=== PATIENT | female | born 1960 | race Caucasian/White ===

== ENCOUNTER 2023-06-20 20:45 | Outpatient (REF) | payer SELFPAY ==
[2023-06-20 21:31] LABS: Bacteria Negative HPF (Negative); C & S Indicated? C&S Done As Ordered; Crystals Negative HPF (Negative); Epithelial Cells Few HPF (Negative); Mucus Trace (Negative); RBC >50 HPF (0-2); WBC 0-2 HPF (0-5)
== END 2023-06-20 20:46 | disposition home or self-care (01) ==
LOC: LBN 20:45
PROVIDERS: Visit Provider Physician Assistant Medical
DX: R35.0 Frequency of micturition (principal)
CPT/HCPCS: 81015; 87086

== ENCOUNTER 2024-09-02 18:49 | Observation (INO) | payer SELFPAY ==
[2024-09-02 18:54] VITALS: BP 161/80; PULSE 91; RESP 16; TEMP 36.4; O2SAT 97
[2024-09-02 19:37] LABS: Abs Immature Grans 0.08 10^3/uL (0.0-0.06); Absolute Basophil Count 0.03 10^3/uL (0.0-0.2); Absolute Eosinophil Count 0.02 10^3/uL (0.0-0.7); Absolute Lymphocyte Count 0.85 10^3/uL (1.2-3.4); Absolute Monocyte Count 0.81 10^3/uL (0.1-0.8); Absolute Neutrophil Count 14.48 10^3/uL (1.2-6.7); Basophils % 0.2 %; Eosinophils % 0.1 %; HCT 45.5 % (36.0-46.0); HGB 15.3 g/dL (11.2-15.7); Immature Grans % 0.5 %; Lymphocytes % 5.2 %; MCH 30.9 pg (27.0-33.0); MCHC 33.6 % (32.0-36.0); MCV 92 fL (80-95); MPV 11.2 fL (8.0-11.0); Platelet Count 194 10^3/uL (130-400); RBC 4.95 10^6/uL (3.93-5.22); RDW 13.4 % (11.7-14.6); RDW-SD 45.3 fL; WBC 16.27 10^3/uL (4.4-10.8)
[2024-09-02 19:40] LABS: Bilirubin Small (Negative); Blood Large (Negative); Clarity Sl Cloudy (Clear); Glucose Negative (Negative); Ketones Trace mg/dL (Negative); Leukocyte Esterase Negative (Negative); Nitrite Negative (Negative); Specific Gravity >= 1.030 (1.005-1.025); Urobilinogen 0.2 mg/dL (Up to 0.2); pH 5.5 (5-8)
[2024-09-02 19:52] LABS: Bacteria Few HPF (Negative); Crystals Few Amorphous HPF (Negative); Epithelial Cells Many HPF (Negative); RBC 20-50 HPF (0-2); WBC 0-2 HPF (0-5)
[2024-09-02 19:53] LABS: C & S Indicated? No; Mucus Trace (Negative)
--- NOTE | 2024-09-02 19:58 | W.ED.GENAD ---
Discharge Plan Disposition Patient Disposition: Admit to [facility] Condition: Stable Discharge Details Chief Complaint: Abd Prob Clinical Impression: Acute cholecystitis Primary Care Provider: None,None ED Provider: Juan Mosley Home Meds and New Rx's Prescriptions: No Action No Known Home Meds HPI General Date/Time Provider Initiated Documentation: 09/02/24 19:28. HPI Narrative: 63-year-old female presents with upper abdominal discomfort bilateral epigastric as well as left flank associated with some urinary frequency and nausea, no diarrhea, is able to pass flatus, history of 2 prior sections Related Data Home Medications ?Medication ?Instructions ?Recorded ?Confirmed Unknown [No Known Home Meds] 09/02/24 09/02/24 Allergies Allergy/AdvReac Type Severity Reaction Status Date / Time No Known Allergies Allergy Unverified 09/02/24 19:03 General Stated Complaint: Abd Prob MOLINA: 3 Exam Narrative Exam Narrative: Alert interactive Moist mucous membranes tolerating secretions Normal voice speaking full sentences Lungs clear bilaterally no wheeze rales or rhonchi Normal heart sounds no murmurs rubs or gallops Abdomen soft mildly distended subjective discomfort epigastrium without guarding or rebound Alert oriented moves all extremities without deficit No peripheral edema No rashes appreciated Calm cooperative Course Vital Signs Vital signs: Vital Signs Temperature 36.4 C L 09/02/24 18:54 Pulse 91 H 09/02/24 18:54 Respiratory Rate 16 09/02/24 18:54 Blood Pressure 161/80 H 09/02/24 18:54 Pulse Oximetry 97 09/02/24 18:54 Temperature 36.4 C L 09/02/24 18:54 Temperature Source Temporal Artery Scan 09/02/24 18:54 Pulse 91 H 09/02/24 18:54 Respiratory Rate 16 09/02/24 18:54 Respiratory Effort Normal 09/02/24 19:03 Blood Pressure 161/80 H 09/02/24 18:54 Blood Pressure Position Sitting 09/02/24 18:54 Pulse Oximetry 97 09/02/24 18:54 Oxygen Delivery Method Room Air 09/02/24 18:54 Oxygen Flow Rate 0 09/02/24 18:54 Pain Level 9 09/02/24 18:54 Lab/Test Results Lab/Test Results: Laboratory Tests Range/Units 09/02/24 09/02/24 19:02 19:30 WBC (4.4-10.8) 10^3/uL 16.27 H RBC (3.93-5.22) 10^6/uL 4.95 Hgb (11.2-15.7) g/dL 15.3 Hct (36.0-46.0) % 45.5 MCV (80-95) fL 92 MCH (27.0-33.0) pg 30.9 MCHC (32.0-36.0) % 33.6 RDW (11.7-14.6) % 13.4 Plt Count (130-400) 10^3/uL 194 MPV (8.0-11.0) fL 11.2 H Immature Gran % % 0.5 Neutrophils % % 89.0 Lymphocytes % % 5.2 Monocytes % % 5.0 Eosinophils % % 0.1 Basophils % % 0.2 Nucleated RBC % (0.0-0.3) % 0.0 Absolute Neutrophils (1.2-6.7) 10^3/uL 14.48 H Absolute Lymphocytes (1.2-3.4) 10^3/uL 0.85 L Absolute Monocytes (0.1-0.8) 10^3/uL 0.81 H Absolute Eosinophils (0.0-0.7) 10^3/uL 0.02 Absolute Basophils (0.0-0.2) 10^3/uL 0.03 Urine Color (Yellow) Dark Yellow Urine Clarity (Clear) Sl Cloudy Urine pH (5-8) 5.5 Ur Specific [place] (1.005-1.025) >= 1.030 H Urine Protein (Neg-Trace) mg/dL 100 H Urine Ketones (Negative) mg/dL Trace H Urine Blood (Negative) Large H Urine Nitrite (Negative) Negative Urine Bilirubin (Negative) Small H Urine Urobilinogen (Up to 0.2) mg/dL 0.2 Ur Leukocyte Esterase (Negative) Negative Urine RBC (0-2) HPF 20-50 H Urine WBC (0-5) HPF 0-2 Ur Epithelial Cells (Negative) HPF Many Urine Crystals (Negative) HPF Few Amorphous Urine Bacteria (Negative) HPF Few Urine Mucus (Negative) Trace Ur Culture Indicated? No Urine Glucose (Negative) mg/dL Negative Medical Decision Making 63-year-old female presents with epigastric and left upper quadrant/flank discomfort associate with nausea and vomiting, no lower GI symptoms, patient does have some urinary frequency, hypertensive on arrival likely due to discomfort, mildly distended abdomen without guarding or rebounding, some component of flank pain and urinary frequency consider kidney stone versus gastritis versus cholecystitis versus biliary colic versus enteritis versus less likely appendicitis most also consider pyelonephritis versus viral illness versus electrolyte derangement. Screening labs imaging close reassessment 21: 28 evidence of cholecystitis. Will initiate Zosyn. Will contact general surgery for admission. Patient last ate over 24 hours ago. 21: 42 patient has been admitted to general surgery Dr. Chiang. Patient currently resting comfortably antibiotics running, patient has been n.p.o. since yesterday. Quality:SDOH Health Related Social Needs: No Data to Display PFSH All Active Problems (Updated 09/02/24 @ 21:43 by Juan Mosley MD) Acute cholecystitis (Acute) Social History Smoking risk assessment performed?: No
[2024-09-02 19:59] LABS: ALT 22 U/L (14-59); AST 12 U/L (15-37); Albumin 3.9 g/dL (3.4-5.0); Alkaline Phosphatase 82 U/L (46-116); Anion Gap 10.3 mmol/L (3-11); BUN 12 mg/dL (7-18); Bilirubin, Total 1.21 mg/dL (0.2-1.0); CO2 27.7 mmol/L (21.0-32.0); CREATININE 0.9 mg/dL (0.55-1.02); Calcium 9.7 mg/dL (8.5-10.1); Chloride 104 mmol/L (98-107); Estimated GFR 70.95 (mL/min/1.73m2); Glucose 132 mg/dL (74-106); Lipase 15 U/L (16-77); NT-proBNP 2521 pg/mL (<300); Potassium 3.7 mmol/L (3.5-5.1); Sodium 142 mmol/L (136-145); Total Protein 7.7 g/dL (6.4-8.2); Troponin I 42 ng/L (<or=51)
--- NOTE | 2024-09-02 20:00 | DI.CT_ITS ---
Exam(s) CT CHEST PE ABD PELVIS W EXAM: CT CHEST PE ABD PELVIS W CLINICAL HISTORY: upper abd pain, sob, elevated BNP, flank pain, L. TECHNIQUE: Imaging Protocol: Axial CT angiography was performed with multi-slice acquisition and mu lti-planar and/or 3D reconstructions. CONTRAST MATERIAL: Intravenous: Omnipaque 350contrast volume:100 mL COMPARISON: No exams were available for comparison FINDINGS: The examination is limited due to patient motion artifact. CHEST: Tracheobronchial tree: Patent where visualized. There is mild bronchial wall thickening which can be seen with reactive airways disease or bronchitis. Please correlate clinically. Pulmonary parenchyma: No consolidation or dominant measurable mass. No architectural distortion. Ther e is a 2 mm nodule in the posterior aspect of the right lung apex (series 7, image 19). Atelectatic changes are seen in the lungs. Pulmonary Arteries: No evidence of filling defect to suggest pulmonary emboli. Mediastinum and Ngozi: No dominant adenopathy or fluid collection. The esophagus is unremarkable. Visualized thyroid gland: Unremarkable. Pleura: No effusion or pneumothorax. Heart: Mild cardiomegaly. Coronary artery calcification is present. There is no evidence of right h eart strain. No pericardial effusion. Aorta: Thoracic aorta non-dilated. Atherosclerotic calcification is present. Due to the timing of th e bolus, there is suboptimal opacification of the thoracic aorta. Bones: Within normal limits for the patient's age. Soft tissues: Unremarkable. ABDOMEN: Liver: Normal density. No measurable mass. Portal, Superior Mesenteric, and Splenic Veins: Unremarkable. Gallbladder and Biliary Tract: The gallbladder is distended measuring 6 cm in diameter. There is a d iffusely thickened wall. There is a small amount of fluid seen around the gallbladder. There is a 7 mm soft tissue nodule along the wall of the gallbladder anteriorly (series 30, image 57). There is also a round area of decreased density in the dependent portion of the gallbladder which may represen t a stone. It measures 1.6 cm. (Series 30, image 51). There is no biliary ductal dilatation. Pancreas: Normal density, no abnormal calcifications or inflammatory process. Spleen: Normal. Adrenals: No masses seen. Kidneys: Normal size, contour and axis. No radiodense stones or obstructive uropathy. There are few t iny hypodensities in the kidneys. They are too small for further characterization. No follow-up is recommended. Abdominal Aorta: The infrarenal abdominal aorta measures 3 cm in diameter. There is no evidence of d issection. Atherosclerotic calcification is present. Bowel: No obstruction or bowel wall thickening. No evidence of appendicitis. Peritoneal Cavity: No ascites, collection or mesenteric inflammatory response. No free air. Lymph Nodes: Within normal limits. Bones: Within normal limits for the patient's age. There is a hemangioma in the L4 vertebral body. Soft Tissues: Unremarkable. PELVIS: Bladder: Symmetric distention, no gross wall thickening. Reproductive Organs: There is a 9.1 x 9.2 cm cyst in the pelvis (series 30, image 123). It is centra lly located but may arise from the right ovary. There is asymmetric thickening of the wall on the le ft side of the cyst. Lymph Nodes: Within normal limits. Bones: Within normal limits. IMPRESSION: 1. No evidence pulmonary embolism, thoracic aortic dissection or aneurysm. 2. No acute pulmonary process. 3. Distended gallbladder with what appears to be a noncalcified stone. Fluid is seen around the gall bladder. The findings are concerning for acute cholecystitis. Gallbladder ultrasound is recommended for further evaluation. No biliary ductal dilatation. 4. 3 cm infrarenal abdominal aortic aneurysm. No evidence of dissection. 5. 9.1 x 9.2 cm pelvic cyst with asymmetric thickening along the left side of the cyst. This may be ovarian in origin. Gynecologic consult is recommended. Further evaluation with pelvic ultrasound an d/or MRI of the pelvis without and with contrast is recommended. 6. 0.7 cm nodular soft tissue density along the anterior aspect of the gallbladder. This may represe nt a polyp. Gallbladder ultrasound is recommended for further characterization. Unexpected findings RADIATION DOSE DELIVERED: 467.15mGy.cm Total DLP DATA REPOSITORY: All CT scans at this facility are submitted to the National Radiology Data Registry (NRDR) Dose Index Registry (DIR) with the [employer] (A[employer]). RADIATION OPTIMIZATION: All CT scans at this facility use at least one of these dose optimization te chniques: automated exposure control; mA and/or kV adjustment per patient size (includes targeted exa ms where dose is matched to clinical indication); or iterative reconstruction.
[2024-09-02 20:01] LABS: INR 1.1 (0.9-1.1); PTT Activated 27.9 sec (23.6-32.8); Prothrombin Time 10.8 sec (9.1-11.1)
[2024-09-02] MEDS: ACETAMINOPHEN 1,000 MG/100 ML BAG 400 MG IVPB (20:03)
[2024-09-02] MEDS: Ondansetron 4 MG/2 ML VIAL IVP ×2 (20:03→23:00)
[2024-09-02] MEDS: Omnipaque 350 MG/ML 100 ML BTL IJ (20:09)
[2024-09-02] MEDS: Normal Saline Flush 10 ML SYR IVP (20:10)
[2024-09-02] MEDS: Normal Saline - Diluent 50 ML VIAL IJ (20:10)
--- NOTE | 2024-09-02 21:08 | DI.VRAD_ITS ---
PROCEDURE INFORMATION: Exam: CTA Chest With Contrast Exam date and time: 09/02/2024 8:13 PM Age: 63 years old Clinical indication: Abdominal pain; Localized; Prior surgery; Surgery date: 6+ months; Surgery type: R lumpectomy with lymph nodes; Patient HX: Upper abd pain, SOB, elevated bnp, flank pain, L; Additional info: HX of breast CA TECHNIQUE: Imaging protocol: Computed tomographic angiography of the chest with contrast. Exam focused on the arteries. 3D rendering (Not supervised by radiologist): MIP and/or 3D reconstructed images were created by the technologist. Radiation optimization: All CT scans at this facility use at least one of these dose optimization techniques: automated exposure control; mA and/or kV adjustment per patient size (includes targeted exams where dose is matched to clinical indication); or iterative reconstruction. Contrast material: OMNIPAQUE 350; Contrast volume: 100 ml; Contrast route: INTRAVENOUS (IV); COMPARISON: No relevant prior studies available. FINDINGS: Pulmonary arteries: No acute pulmonary emboli. Aorta: Atherosclerotic calcification of the thoracic aorta, without aneurysm Lungs: Mild bilateral upper and lower lobe bronchial wall thickening, compatible with reactive airways disease or bronchitis. Pleural spaces: Unremarkable. No pneumothorax. No pleural effusion. Heart: Unremarkable. No cardiomegaly. No pericardial effusion. Coronary arteries: Moderate three-vessel coronary artery atherosclerotic disease. Lymph nodes: Unremarkable. No enlarged lymph nodes. Bones/joints: Unremarkable. No acute fracture. Soft tissues: Unremarkable. IMPRESSION: 1. No acute pulmonary emboli. 2. Mild bilateral upper and lower lobe bronchial wall thickening, compatible with reactive airways disease or bronchitis. PROCEDURE INFORMATION: Exam: CT Abdomen And Pelvis With Contrast Exam date and time: 09/02/2024 8:13 PM Age: 63 years old Clinical indication: Abdominal pain; Localized; Prior surgery; Surgery date: 6+ months; Surgery type: R lumpectomy with lymph nodes; Patient HX: Upper abd pain, SOB, elevated bnp, flank pain, L; Additional info: HX of breast CA TECHNIQUE: Imaging protocol: Computed tomography of the abdomen and pelvis with contrast. Radiation optimization: All CT scans at this facility use at least one of these dose optimization techniques: automated exposure control; mA and/or kV adjustment per patient size (includes targeted exams where dose is matched to clinical indication); or iterative reconstruction. Contrast material: OMNIPAQUE 350; Contrast volume: 100 ml; Contrast route: INTRAVENOUS (IV); COMPARISON: No relevant prior studies available. FINDINGS: Liver: Normal. Gallbladder and biliary ducts: Distended gallbladder, with gallbladder wall thickening and minimal adjacent fat stranding, suggesting acute cholecystitis. No biliary dilation. 7 mm hyperdense focus along the fundal aspect of the gallbladder wall, not well characterized on this study. Pancreas: Normal. Spleen: Normal. Adrenal glands: Normal. No mass. Kidneys and ureters: Normal. Stomach and bowel: Normal. Appendix: Appendix normal. Intraperitoneal space: Unremarkable. No free air. No significant fluid collection. Vasculature: Atherosclerotic disease of the abdominal aorta and iliac arteries. Lymph nodes: Unremarkable. No enlarged lymph nodes. Urinary bladder: Unremarkable as visualized. Reproductive: Unremarkable as visualized. Bones/joints: No acute abnormality. Soft tissues: Normal. IMPRESSION: 1. Distended gallbladder, with gallbladder wall thickening and minimal adjacent fat stranding, suggesting acute cholecystitis. No biliary dilation. 2. 7 mm hyperdense focus along the fundal aspect of the gallbladder wall, not well characterized on this study. Recommend further evaluation with sonography. Dictated and Authenticated by: Thierry Matthew MD. Ordering:FRIEDA Martinez MD
[2024-09-02] MEDS: PIPERACILLIN/TAZO 3.375 GM in Normal Saline 50 ML IVPB (21:36)
[2024-09-02] MEDS: HYDROmorphone 2 MG/ML SYR 1 MG IVP (22:59)
[2024-09-02] MEDS: Lactated Ringers 1,000 ML 75 ML IV (23:15)
--- NOTE | 2024-09-02 23:40 | W.PM.HP.N ---
Date of service: 09/02/24 Time of Service: 22:45 Assessment and Plan Assessment and plan (1) Acute cholecystitis: Start date: 09/03/24 Status: Acute Assessment and plan: (1) Cholelithiasis with acute cholecystitis (2) Admit Obs (3) Clears, NPO after MN tonight (4) IVF, analgesics, antiemetics, Zosyn (5) Repeat WBC in the morning (6) Considering Lap Luis, possible open luis in next 24-36 hrs. Nica HaddadO. History of Present Illness History of Present Illness Chief Complaint: Abdominal pain, nausea, and vomiting Narrative: This 63y/o female reports a remote history of right breast cancer. She underwent right breast lumpectomy and sentinel lymph node biopsy. She reports having taken chemotherapy. All of her treatment was at [facility]. She states that she has not seen a physician in the past 15 years. She has not kept up on her breast imaging, or PAP tests, and she has never had a colonoscopy. I encouraged her to pursue these health maintenance measures. Several days ago she began having right upper quadrant pain. She then developed nasuea and had some episodes of emesis. Symptoms worsened prompting her to present to the Emergency Department at [facility]. Patient was found to be dehydrated with leukocytosis. White blood count is 16,300, Liver function studies and Lipase are normal. CT Scan of the chest was negative for PE. CT Scan of the abdomen/pelvis demonstrated cholelithiasis (at least one 7mm gallstone) and some pericholecystic stranding and wall thickening. There was no ductal dilation. PMHx: Patient specifically denies any known heart, lung, liver, or kidney problems. She denies any history of diabetes, hypertension, or thyroid disease. PSHx: C-sections x2 SOC Hx: patient is a non-smoker. is at bedside. Review of Systems Constitutional Comments: Reports not having seen a doctor in 15 years Cardiovascular Comments: Denies any known heart disease Respiratory Comments: Denies any known pulmonary disease Gastrointestinal Comments: Abdominal pain, nausea, vomiting Genitourinary Comments: C-sections x2 Denies any known renal disease Endocrine Comments: Denies history of diabetes PFSH All Active Problems Acute cholecystitis (Acute) Social History Smoking risk assessment performed?: No Meds Allergies and Home Medications Allergies Allergy/AdvReac Type Severity Reaction Status Date / Time No Known Allergies Allergy Unverified 09/02/24 19:03 Home Medications ?Medication ?Instructions ?Recorded ?Confirmed ?Type Unknown [No Known Home Meds] 09/02/24 09/02/24 History Exam Narrative Exam Narrative: Pleasant , non-toxic appearing 63y/o female Const General: cooperative and other (Dehydrated, nauseous ) Nutritional Appearance: average body habitus Orientation: alert and oriented x3 HENMT Head: normal to inspection Mouth: other (Dry oral mucosa and tongue c/w dehydration) Eyes Other: Non-icteric, EOMI Neck Other: Supple, without carotid bruits, thyroid is non-tender Chest Other: HRRR Resp Other: CTA b/l in anterior bill Cardio Other: HRRR GI Other: RUQ tenderness to palpation. Mcrae's sign positive. Other: Not examined Skin Other: No rashes Neuro Other: No focal or lateralizing neuro deficits Extrem Other: Neurovasc intact, there are no open sore, wounds, or ulcers. There is no calf pain Psych Appearance: grossly normal Mental Status: mental status grossly normal Affect: normal affect Results Imaging Abdomen CT scan report/results: report reviewed CT scan - chest: report reviewed CT scan - pelvis: report reviewed Labs 09/02/24 19:30 09/02/24 19:30 Labs: Laboratory Results - last 24 hr 09/02/24 09/02/24 09/02/24 19:02 19:30 20:29 WBC 16.27 H RBC 4.95 Hgb 15.3 Hct 45.5 MCV 92 MCH 30.9 MCHC 33.6 RDW 13.4 Plt Count 194 MPV 11.2 H Immature Gran % 0.5 Neutrophils % 89.0 Lymphocytes % 5.2 Monocytes % 5.0 Eosinophils % 0.1 Basophils % 0.2 Nucleated RBC % 0.0 Absolute Neutrophils 14.48 H Absolute Lymphocytes 0.85 L Absolute Monocytes 0.81 H Absolute Eosinophils 0.02 Absolute Basophils 0.03 PT 10.8 INR 1.1 APTT 27.9 Sodium 142 Potassium 3.7 Chloride 104 Carbon Dioxide 27.7 Anion Gap 10.3 BUN 12 Creatinine 0.9 Est GFR (CKD-EPI 2020) 70.95 Glucose 132 H Calcium 9.7 Total Bilirubin 1.21 H AST 12 L ALT 22 Alkaline Phosphatase 82 Troponin I 42 Cancelled NT-Pro-B Natriuret Pep 2521 H Total Protein 7.7 Albumin 3.9 Lipase 15 L Urine Color Dark Yellow Urine Clarity Sl Cloudy Urine pH 5.5 Ur Specific [place] >= 1.030 H Urine Protein 100 H Urine Ketones Trace H Urine Blood Large H Urine Nitrite Negative Urine Bilirubin Small H Urine Urobilinogen 0.2 Ur Leukocyte Esterase Negative Urine RBC 20-50 H Urine WBC 0-2 Ur Epithelial Cells Many Urine Crystals Few Amorphous Urine Bacteria Few Urine Mucus Trace Ur Culture Indicated? No Urine Glucose Negative Last Vital Signs Temp 97.5 F L 09/02/24 18:54 Pulse 91 H 09/02/24 18:54 Resp 16 09/02/24 18:54 BP 161/80 H 09/02/24 18:54 Pulse Ox 97 09/02/24 18:54 Time Spent Time spent with Patient: 40-54 minutes Time was spent: preparing to see the patient(eg.review tests), obtaining and/or reviewing separately otained hiistory, ordering medications,tests, procedures, indepentently interpreting results, counseling the patient and care coordination
[2024-09-03] VITALS (13 sets, daily range): BP systolic 126–152; BP diastolic 60–86; PULSE 58–89; RESP 12–18; TEMP 36.2–36.8; O2SAT 92–97; BMI 33.6
--- NOTE | 2024-09-03 00:23 | W.PC.ACHO ---
Registration Status: Primary Language: Preferred Language: ED Information & Data Chief Complaint Abd Prob 09/02/24 20:00 Triage Note Pt c/o severe abd pain ( 09/02/24 18:54 generalized) that started Sunday. Pt states she had n /v x 2 today. Pt is not able to eat/drink since Sunday. Last BM this morning and normal. Pt states she gets dizzy when she stands quickly and has developed a h/a today (forehead). Pt also c/o urinary frequency despite not taking in fluids . No abd surgeries. Denies taking pain meds. Denies SOB/CP, cough. Most Recent Vital Signs Temperature 36.2 C L 09/03/24 00:14 Temperature Source Tympanic 09/03/24 00:14 Pulse 89 09/03/24 00:14 Respiratory Rate 18 09/03/24 00:14 Respiratory Effort Normal 09/02/24 19:03 Blood Pressure 148/86 H 09/03/24 00:14 Blood Pressure Position Sitting 09/02/24 18:54 Pulse Oximetry 97 09/03/24 00:14 Oxygen Delivery Method Room Air 09/03/24 00:14 Oxygen Flow Rate 0 09/03/24 00:14 Pain Level 0 09/03/24 00:14 Allergies No Known Allergies Allergy (Unverified 09/02/24 19:03) Active Medications Generic Name Dose Route Start Last Admin Trade Name Freq PRN Reason Stop Dose Admin Hydromorphone HCl 1 mg 09/02/24 21:59 09/02/24 22:59 Hydromorphone 2 Mg/Ml Syr IVP 1 mg Q4H PRN PRN Administration Ringer's Solution 1,000 mls @ 75 mls/hr 09/02/24 22:00 09/02/24 23:26 IV 150 mls/hr INFUSION TERRANCE Infusion Iohexol 100 ml 09/02/24 20:15 09/02/24 20:09 Omnipaque 350 Mg/Ml 100 Ml Btl IJ 10/02/24 23:59 100 ml DIRECTED TERRANCE Administration Ondansetron HCl 4 mg 09/02/24 21:49 09/02/24 23:00 Ondansetron 4 Mg/2 Ml Vial IVP 4 mg Q4H PRN PRN Administration Sodium Chloride 50 ml 09/02/24 20:15 09/02/24 20:10 Normal Saline - Diluent 50 Ml Vial IJ 50 ml .FOR DI USE TERRANCE Administration Sodium Chloride 0 ml 09/02/24 20:10 09/02/24 20:10 Normal Saline Flush 10 Ml Syr IVP 10 ml PRN PRN Administration IV IV Catheter Type [Left Peripheral IV Antecubital] IV Catheter Gauge [Left 18 Antecubital] Diet Orders Category Date Time Status Nothing Per Oral [DIET] Nutrition 09/03/24 Breakfast Active Diagnostics 09/03/24 09/02/24 09/02/24 Range/Units 07:00 20:29 19:30 WBC Pending 16.27 H (4.4-10.8) 10^3/uL RBC Pending 4.95 (3.93-5.22) 10^6/uL Hgb Pending 15.3 (11.2-15.7) g/dL Hct Pending 45.5 (36.0-46.0) % MCV Pending 92 (80-95) fL MCH Pending 30.9 (27.0-33.0) pg MCHC Pending 33.6 (32.0-36.0) % RDW Pending 13.4 (11.7-14.6) % Plt Count Pending 194 (130-400) 10^3/uL MPV Pending 11.2 H (8.0-11.0) fL Immature Gran % Pending 0.5 % Neutrophils % Pending 89.0 % Lymphocytes % Pending 5.2 % Monocytes % Pending 5.0 % Eosinophils % Pending 0.1 % Basophils % Pending 0.2 % Nucleated RBC % 0.0 (0.0-0.3) % Absolute Neutrophils Pending 14.48 H (1.2-6.7) 10^3/uL Absolute Lymphocytes Pending 0.85 L (1.2-3.4) 10^3/uL Absolute Monocytes Pending 0.81 H (0.1-0.8) 10^3/uL Absolute Eosinophils Pending 0.02 (0.0-0.7) 10^3/uL Absolute Basophils Pending 0.03 (0.0-0.2) 10^3/uL PT 10.8 (9.1-11.1) sec INR 1.1 (0.9-1.1) APTT 27.9 (23.6-32.8) sec Sodium 142 (136-145) mmol/L Potassium 3.7 (3.5-5.1) mmol/L Chloride 104 (98-107) mmol/L Carbon Dioxide 27.7 (21.0-32.0) mmol/L Anion Gap 10.3 (3-11) mmol/L BUN 12 (7-18) mg/dL Creatinine 0.9 (0.55-1.02) mg/dL Est GFR (CKD-EPI 2020) 70.95 (mL/min/1.73m2) Glucose 132 H (74-106) mg/dL Calcium 9.7 (8.5-10.1) mg/dL Total Bilirubin 1.21 H (0.2-1.0) mg/dL AST 12 L (15-37) U/L ALT 22 (14-59) U/L Alkaline Phosphatase 82 (46-116) U/L Troponin I Cancelled 42 (<or=51) ng/L NT-Pro-B Natriuret Pep 2521 H (<300) pg/mL Total Protein 7.7 (6.4-8.2) g/dL Albumin 3.9 (3.4-5.0) g/dL Lipase 15 L (16-77) U/L Urine Color (Yellow) Urine Clarity (Clear) Urine pH (5-8) Ur Specific [place] (1.005-1.025) Urine Protein (Neg-Trace) mg/dL Urine Ketones (Negative) mg/dL Urine Blood (Negative) Urine Nitrite (Negative) Urine Bilirubin (Negative) Urine Urobilinogen (Up to 0.2) mg/dL Ur Leukocyte Esterase (Negative) Urine RBC (0-2) HPF Urine WBC (0-5) HPF Ur Epithelial Cells (Negative) HPF Urine Crystals (Negative) HPF Urine Bacteria (Negative) HPF Urine Mucus (Negative) Ur Culture Indicated? Urine Glucose (Negative) mg/dL 09/02/24 Range/Units 19:02 WBC (4.4-10.8) 10^3/uL RBC (3.93-5.22) 10^6/uL Hgb (11.2-15.7) g/dL Hct (36.0-46.0) % MCV (80-95) fL MCH (27.0-33.0) pg MCHC (32.0-36.0) % RDW (11.7-14.6) % Plt Count (130-400) 10^3/uL MPV (8.0-11.0) fL Immature Gran % % Neutrophils % % Lymphocytes % % Monocytes % % Eosinophils % % Basophils % % Nucleated RBC % (0.0-0.3) % Absolute Neutrophils (1.2-6.7) 10^3/uL Absolute Lymphocytes (1.2-3.4) 10^3/uL Absolute Monocytes (0.1-0.8) 10^3/uL Absolute Eosinophils (0.0-0.7) 10^3/uL Absolute Basophils (0.0-0.2) 10^3/uL PT (9.1-11.1) sec INR (0.9-1.1) APTT (23.6-32.8) sec Sodium (136-145) mmol/L Potassium (3.5-5.1) mmol/L Chloride (98-107) mmol/L Carbon Dioxide (21.0-32.0) mmol/L Anion Gap (3-11) mmol/L BUN (7-18) mg/dL Creatinine (0.55-1.02) mg/dL Est GFR (CKD-EPI 2020) (mL/min/1.73m2) Glucose (74-106) mg/dL Calcium (8.5-10.1) mg/dL Total Bilirubin (0.2-1.0) mg/dL AST (15-37) U/L ALT (14-59) U/L Alkaline Phosphatase (46-116) U/L Troponin I (<or=51) ng/L NT-Pro-B Natriuret Pep (<300) pg/mL Total Protein (6.4-8.2) g/dL Albumin (3.4-5.0) g/dL Lipase (16-77) U/L Urine Color Dark Yellow (Yellow) Urine Clarity Sl Cloudy (Clear) Urine pH 5.5 (5-8) Ur Specific [place] >= 1.030 H (1.005-1.025) Urine Protein 100 H (Neg-Trace) mg/dL Urine Ketones Trace H (Negative) mg/dL Urine Blood Large H (Negative) Urine Nitrite Negative (Negative) Urine Bilirubin Small H (Negative) Urine Urobilinogen 0.2 (Up to 0.2) mg/dL Ur Leukocyte Esterase Negative (Negative) Urine RBC 20-50 H (0-2) HPF Urine WBC 0-2 (0-5) HPF Ur Epithelial Cells Many (Negative) HPF Urine Crystals Few Amorphous (Negative) HPF Urine Bacteria Few (Negative) HPF Urine Mucus Trace (Negative) Ur Culture Indicated? No Urine Glucose Negative (Negative) mg/dL Intake and Output - 24 Hour Total 09/02/24 18:49 thru 09/02/24 23:26 Intake Total 163.75 Balance 163.75 Weight 97.522 kg Intake: IV 163.75 Falls Risk Assessment History of Falls No History 09/02/24 19:03 Contributing Factors No Factors 09/02/24 19:03 Ambulatory Aids Independent 09/02/24 19:03 Tubes/Lines None 09/02/24 19:03 Gait Evaluation No gait disturbance 09/02/24 19:03 Cognition No cognitive impairment 09/02/24 19:03 Fall Total Score 0 09/02/24 19:03 Level of Risk Standard/Low Risk 09/02/24 19:03 Problems (Last Reviewed 09/02/24 @ 23:51 by Antonio Chiang, ) Acute cholecystitis (Acute) v v v v v v v v v Sending and/or Receiving Nurses: Please use comment section below to note any information pertinent to the patient hand-off not included above. Information / Comments: Pt coming from ED, Report given by Marlene MURCIA. Pt came in w/ few days epigastric pain and N/V. Found to have acute cholecystitis. Given zosyn, zofran and dilaudid in ED. NPO at [place] for sx in AM. Hx of breast CA. 18g in L AC running LR at 75cc/hr. Ind in room. Report received from:
[2024-09-03] MEDS: PIPERACILLIN/TAZO 3.375 GM in Normal Saline 50 ML IVPB ×4 (03:58→21:16)
[2024-09-03 07:11] LABS: Abs Immature Grans 0.07 10^3/uL (0.0-0.06); Absolute Basophil Count 0.03 10^3/uL (0.0-0.2); Absolute Eosinophil Count 0.02 10^3/uL (0.0-0.7); Basophils % 0.2 %; Eosinophils % 0.1 %; HCT 41.3 % (36.0-46.0); HGB 13.8 g/dL (11.2-15.7); Immature Grans % 0.4 %; Lymphocytes % 4.7 %; MCH 30.8 pg (27.0-33.0); MCHC 33.4 % (32.0-36.0); MCV 92 fL (80-95); MPV 10.8 fL (8.0-11.0); Monocytes % 6.4 %; Neutrophils % 88.2 %; Platelet Count 164 10^3/uL (130-400); RBC 4.48 10^6/uL (3.93-5.22); RDW 13.6 % (11.7-14.6); RDW-SD 45.8 fL; WBC 16.03 10^3/uL (4.4-10.8)
[2024-09-03 07:13] LABS: Absolute Lymphocyte Count 0.75 10^3/uL (1.2-3.4); Absolute Monocyte Count 1.03 10^3/uL (0.1-0.8); Absolute Neutrophil Count 14.14 10^3/uL (1.2-6.7)
[2024-09-03] MEDS: HYDROmorphone 2 MG/ML VIAL 1 MG IVP (09:40)
--- NOTE | 2024-09-03 09:43 | PGE_ITS ---
Date of Service Date of service: 09/03/24 Time of Service: 09:43 Assessment and Plan Assessment and plan (1) Acute cholecystitis: Status: Acute Assessment and plan: (1) Cholelithiasis with acute cholecystitis (2) Leukocytosis persists with WBC remaining at 16,000 (3) Continue IVF, antibiotics, and NPO status (4) Advised patient to proceed with cholecystectomy; she wishes to proceed (5) Planning Lap luis, possible open luis, for today. Antonio Chiang D.O. Exam Narrative Exam Narrative: Patient seen this morning on rounds. Got some good sleep last night. Still having some nausea and abdominal pain, but better controlled. GI Other: Tenderness persists at right upper quadrant. Extrem Other: There is no calf pain. Objective Last Vital Signs Temp 97.5 F L 09/03/24 07:33 Pulse 74 09/03/24 07:33 Resp 15 09/03/24 07:33 BP 150/68 H 09/03/24 07:33 Pulse Ox 94 09/03/24 07:33 Laboratory Results - last 24 hr 09/02/24 09/02/24 09/02/24 19:02 19:30 20:29 WBC 16.27 H RBC 4.95 Hgb 15.3 Hct 45.5 MCV 92 MCH 30.9 MCHC 33.6 RDW 13.4 Plt Count 194 MPV 11.2 H Immature Gran % 0.5 Neutrophils % 89.0 Lymphocytes % 5.2 Monocytes % 5.0 Eosinophils % 0.1 Basophils % 0.2 Nucleated RBC % 0.0 Absolute Neutrophils 14.48 H Absolute Lymphocytes 0.85 L Absolute Monocytes 0.81 H Absolute Eosinophils 0.02 Absolute Basophils 0.03 PT 10.8 INR 1.1 APTT 27.9 Sodium 142 Potassium 3.7 Chloride 104 Carbon Dioxide 27.7 Anion Gap 10.3 BUN 12 Creatinine 0.9 Est GFR (CKD-EPI 2020) 70.95 Glucose 132 H Calcium 9.7 Total Bilirubin 1.21 H AST 12 L ALT 22 Alkaline Phosphatase 82 Troponin I 42 Cancelled NT-Pro-B Natriuret Pep 2521 H Total Protein 7.7 Albumin 3.9 Lipase 15 L Urine Color Dark Yellow Urine Clarity Sl Cloudy Urine pH 5.5 Ur Specific [place] >= 1.030 H Urine Protein 100 H Urine Ketones Trace H Urine Blood Large H Urine Nitrite Negative Urine Bilirubin Small H Urine Urobilinogen 0.2 Ur Leukocyte Esterase Negative Urine RBC 20-50 H Urine WBC 0-2 Ur Epithelial Cells Many Urine Crystals Few Amorphous Urine Bacteria Few Urine Mucus Trace Ur Culture Indicated? No Urine Glucose Negative 09/03/24 07:04 WBC 16.03 H RBC 4.48 Hgb 13.8 Hct 41.3 MCV 92 MCH 30.8 MCHC 33.4 RDW 13.6 Plt Count 164 MPV 10.8 Immature Gran % 0.4 Neutrophils % 88.2 Lymphocytes % 4.7 Monocytes % 6.4 Eosinophils % 0.1 Basophils % 0.2 Nucleated RBC % 0.0 Absolute Neutrophils 14.14 H Absolute Lymphocytes 0.75 L Absolute Monocytes 1.03 H Absolute Eosinophils 0.02 Absolute Basophils 0.03 PT INR APTT Sodium Potassium Chloride Carbon Dioxide Anion Gap BUN Creatinine Est GFR (CKD-EPI 2020) Glucose Calcium Total Bilirubin AST ALT Alkaline Phosphatase Troponin I NT-Pro-B Natriuret Pep Total Protein Albumin Lipase Urine Color Urine Clarity Urine pH Ur Specific [place] Urine Protein Urine Ketones Urine Blood Urine Nitrite Urine Bilirubin Urine Urobilinogen Ur Leukocyte Esterase Urine RBC Urine WBC Ur Epithelial Cells Urine Crystals Urine Bacteria Urine Mucus Ur Culture Indicated? Urine Glucose PAWSS Have you Been Recently Intoxicated or Drunk Within the Last 30 days?: No Have you Ever Experienced Previous Episodes of Alcohol Withdrawal?: No Have you ever Experienced Withdrawal Seizures?: No Have you ever Experienced Delirium Tremens(DT)s?: No Have you ever undergone Alcohol Rehabilitation Treatment (i.e, inpt ot outpatient treatment programs)?: No Have you ever Experienced Blackouts?: No Have you ever Combined Alcohol with other Downers within the last 90 days?: No Have you ever Combined Alcohol with any other Substance of Abuse during the last 90 days?: No Positive Blood Alcohol level on Presentation? [PCS.BAL]: No Evidence of Increased Autonomic Activity (i.e. HR>120, tremor, sweating, agitation, nausea)?: No Result: 0 Time Spent with Patient Time Spent with Patient: <25 minutes Time was spent: preparing to see the patient(eg.review tests), ordering medications,tests, procedures, referring, communicating with other health child care supervisor, indepentently interpreting results, counseling the patient and care coordination
[2024-09-03] MEDS: Normal Saline Flush 10 ML SYR IVP (09:45)
[2024-09-03] MEDS: Lactated Ringers 1,000 ML 30 ML IV ×2 (10:40→21:16)
--- NOTE | 2024-09-03 11:02 | ANES.PREOP_ITS ---
General Info Date of Service Date Performed: 09/03/24 Height: 5 ft 7 in Weight: 97.522 kg Body Mass Index (BMI): 33.6 Surgical Procedure: Operation Date: 09/03/24 12:25 Proposed Procedure Side Surgeon p Cholecystectomy Laparoscopic Antonio Chiang, DO Actual Procedure Side Surgeon p Cholecystectomy Laparoscopic Antonio Chiang, DO Pre-Op Diagnosis Post-Op Diagnosis Acute cholecystitis: Meds Allergies and Home Medications Allergies Allergy/AdvReac Type Severity Reaction Status Date / Time No Known Allergies Allergy Unverified 09/02/24 19:03 Home Medication ?Medication ?Instructions ?Recorded Unknown [No Known Home Meds] 09/02/24 Current Visit Medications: Current Medications Generic Name Dose Route Start Last Admin Trade Name Freq PRN Reason Stop Dose Admin Acetaminophen 650 mg 09/02/24 21:54 Acetaminophen 325 Mg Tab PO Q4H PRN PRN Pain Enoxaparin Sodium 40 mg 09/02/24 22:00 09/03/24 00:59 Enoxaparin 40 Mg/0.4 Ml Syr SC Not Given Q24H TERRANCE Hydromorphone HCl 1 mg 09/03/24 07:16 09/03/24 09:40 Hydromorphone 2 Mg/Ml Vial IVP 1 mg Q4H PRN PRN Administration Ringer's Solution 1,000 mls @ 75 mls/hr 09/02/24 22:00 09/03/24 01:28 IV 75 mls/hr INFUSION TERRANCE Infusion Piperacillin Sod/Tazobactam 50 mls @ 100 mls/hr 09/02/24 22:00 09/03/24 09:51 Sod 3.375 gm/ Sodium Chloride IVPB 100 mls/hr Q6H TERRANCE Administration IV Miscellaneous Supplies 1 each 09/02/24 22:00 Iv Access IV DIRECTED TERRANCE Ondansetron HCl 4 mg 09/02/24 21:49 09/02/24 23:00 Ondansetron 4 Mg/2 Ml Vial IVP 4 mg Q4H PRN PRN Administration Sodium Chloride 0 ml 09/02/24 21:49 Normal Saline Flush 10 Ml Syr IVP PRN PRN Sodium Chloride 0 ml 09/03/24 08:30 09/03/24 09:45 Normal Saline Flush 10 Ml Syr IVP 10 ml BID TERRANCE Administration Sodium Chloride 0 ml 09/02/24 21:49 Normal Saline 10 Ml Vial IJ DIRECTED PRN Temazepam 30 mg 09/02/24 23:39 Temazepam 15 Mg Cap PO HS PRN PRN PFSH Active Problems Active Problems: Problem Status Onset Code Acute cholecystitis Acute K81.0 Tobacco Smoking/Tobacco Use Status: Never Alcohol Details: denies Substance Use Substance use: Never Substance use type: does not use Vital Signs and Lab Results Vital Signs Most Recent Vital Signs in EMR: Most Recent Vital Signs Temp Pulse Resp BP Pulse Ox 36.4 C L 74 15 150/68 H 94 09/03/24 07:33 09/03/24 07:33 09/03/24 07:33 09/03/24 07:33 09/03/24 07:33 Vital Signs Comment Vital Signs Comment:: Temp Pulse Resp BP Pulse Ox 36.4 C L 74 15 150/68 H 94 09/03/24 07:33 09/03/24 07:33 09/03/24 07:33 09/03/24 07:33 09/03/24 07:33 Lab Results 09/03/24 07:04 09/02/24 19:30 Blood Type / Crossmatch: 2 No Data to Display Complete Blood Count: 2 White Blood Count 16.03 10^3/uL (4.4-10.8) H 09/03/24 07:04 Red Blood Count 4.48 10^6/uL (3.93-5.22) 09/03/24 07:04 Hemoglobin 13.8 g/dL (11.2-15.7) 09/03/24 07:04 Hematocrit 41.3 % (36.0-46.0) 09/03/24 07:04 Platelet Count 164 10^3/uL (130-400) 09/03/24 07:04 Complete Metabolic Panel: 2 Sodium 142 mmol/L (136-145) 09/02/24 19:30 Potassium 3.7 mmol/L (3.5-5.1) 09/02/24 19:30 Chloride 104 mmol/L (98-107) 09/02/24 19:30 Carbon Dioxide 27.7 mmol/L (21.0-32.0) 09/02/24 19:30 BUN 12 mg/dL (7-18) 09/02/24 19:30 Creatinine 0.9 mg/dL (0.55-1.02) 09/02/24 19:30 Est GFR (CKD-EPI 2020) 70.95 (mL/min/1.73m2) 09/02/24 19:30 Calcium 9.7 mg/dL (8.5-10.1) 09/02/24 19:30 Albumin 3.9 g/dL (3.4-5.0) 09/02/24 19:30 Glucose 132 mg/dL (74-106) H 09/02/24 19:30 Liver Function Panel: 2 Alanine Aminotransferase (ALT/SGPT) 22 U/L (14-59) 09/02/24 19: 30 Aspartate Amino Transf (AST/SGOT) 12 U/L (15-37) L 09/02/24 19: 30 Coagulation Panel: 2 INR International Normalized Ratio 1.1 (0.9-1.1) 09/02/24 19:3 0 Prothrombin Time 10.8 sec (9.1-11.1) 09/02/24 19:30 Activated Partial Thromboplast Time 27.9 sec (23.6-32.8) 19:30 Cardiac Panel: 2 Troponin I 42 ng/L (<or=51) 09/02/24 NT-Pro-B Natriuret Pep 2521 pg/mL (<300) H 09/02/24 Arterial Blood Gas: 2 No Data to Display Venous Blood Gas: 2 No Data to Display Pancreas Panel: 2 Lipase 15 U/L (16-77) L 09/02/24 19:30 Thyroid Panel: 2 No Data to Display Infectious Disease: 2 No Data to Display Blood Cultures: 2 No Data to Display Toxicology Panel: 2 No Data to Display Anesthesia Assessment and Plan Anesthesia History Personal History: No History of Anesthesia Complications Family History: No Family History of Anesthesia Complications Exercise Tolerance Exercise Tolerance: Metabolic Equivalents>4 Pertinent Negatives Pertinent Negatives: No Symptoms of GERD (Denies DOS ), No Major Pulmonary Symptoms or Complaints, No History of CVA/TIA and Other (reports hx of heart murmur - which she states is fine) Cardiac & Pulmonary Exam Cardiac Exam: Heart Murmur Present Pulmonary Exam: Clear Bilateral Breath Sounds Implantable Cardiac Device Does patient have a Pacemaker or an ICD?: No Airway Exam Known Difficult Airway: No Mallampati Class: 2 Mouth Opening: Normal (> 3cm) Thyromental Distance: Greater than 3 cm Facial Hair: Full [place] Neck Range of Motion: Full ROM Neck Circumference: Normal Teeth Condition: Edentulous ASA Classification ASA Score: ASA 3 Emergency Case?: Yes NPO Status NPO Status: NPO Clears >2 hours, Solids >8 hours Anesthesia Plan Resuscitation Status: Full Code Anesthesia Technique: General Anesthesia Airway Planned: Endotracheal Tube Monitors Used: Standard Monitors and SedLine Preoperative Comments:: Miss Land is a 63 y/o F with limited documentation in [facility]. Reports mastectomy and lumpectomy ~ 15 years ago and two emergent c-sections prior. She denies hx of complications with anesthetics, ? one episode of nausea and vomiting status post one of her emergent c-sections but is unsure of this to be true. She denies CV hx, denies pulmonary hx, denies recent illness of cough, denies fevers, denies acid reflux, she does endorse one episode of nausea and vomiting at time of arrival to this facility on 09/02/24, denies since. Appropriately NPO. Endorsing anxiety which was treated preoperatively with midazolam. Plan: GETA w/ propofol TIVA, adjuncts as necessary, adequate IV access, sedline.
[2024-09-03] MEDS: Bupivacaine 0.25% Pres-Free W/EPI 30 ML VIAL (11:24)
--- NOTE | 2024-09-03 11:33 | PHA.REVIEW2 ---
Pharmacy Admission Review Admission Clinical Review Admission Pharmacy Review: Acute cholecystitis (Acute) No Known Allergies Allergy (Unverified 09/02/24 19:03) Resuscitation Status Full Code Height 5 ft 7 in Weight 97.522 kg Comments Comments/Follow Ups: POD #0 Pharmacy Admission Review Renal Dosing Renal Dosing: BUN 12 mg/dL (7-18) 09/02/24 19:30 Creatinine 0.9 mg/dL (0.55-1.02) 09/02/24 19:30 Medications needing adjustments: Reviewed (CrCl 67.26 mL/min) List of meds needing interventions: Current medications are okay Anticoagulation Anticoagulation: Hgb 13.8 g/dL (11.2-15.7) 09/03/24 07:04 Hct 41.3 % (36.0-46.0) 09/03/24 07:04 Plt Count 164 10^3/uL (130-400) 09/03/24 07:04 INR 1.1 (0.9-1.1) 09/02/24 19:30 Creatinine 0.9 mg/dL (0.55-1.02) 09/02/24 19:30 DVT Prophylaxis: Reviewed Medications: Enoxaparin (40mg daily) Opiate Usage Evaluate Pain Scale/Pains Meds: Reviewed (hydromorphone IVP PRN - 1 dose given) Scheduled Bowel Reg ordered if on Opiates?: No Relevant Labs Relevant Labs: Sodium 142 mmol/L (136-145) 09/02/24 19:30 Potassium 3.7 mmol/L (3.5-5.1) 09/02/24 19:30 Chloride 104 mmol/L (98-107) 09/02/24 19:30 Electrolytes, C-Reactive P, ESR: Reviewed (No new labs for today) Cardiac Review Cardiac Review: Troponin I Cancelled 09/02/24 20:29 NT-Pro-B Natriuret Pep 2521 pg/mL (<300) H 09/02/24 19:30 Blood Pressure 150/68 0733 Blood Pressure 148/86 0024 Blood Pressure 148/86 0014 BP, HR, EF%: Reviewed (HR WNL) QTc Review QTc: Reviewed (No EKG on file) IV to PO Switch IV Medications: Reviewed (hydromorphone, ondansetron and Zosyn - OR today, NPO) Home Meds Home Med List reviewed: Reviewed Relevent Home Meds Not ordered & why?: No known home meds Current Meds Current Medication Order Review: Reviewed Pharmacy Antibiotic Review Relevant Labs: WBC 16.03 10^3/uL (4.4-10.8) H 09/03/24 07:04 Temperature 36.4 C Temperature 36.2 C Temperature 36.2 C Comments: Patient is on Zosyn (3 doses 09/03 1000 - day 1) for acute cholecystitis. In OR today. WBC decreased from 16.27, patient is afebrile and no cultures pending. Comments Comments/Follow Ups: POD #0
--- NOTE | 2024-09-03 13:30 | GB_PTH ---
PATIENT: Gwen Land LOC: U#:[id number] AGE/SX: 63/F [place]OM[place] [facility] [place]/[address]: Antonio Chiang DO : 1960 BED: A DIS: 09/04/2024 SPEC #: [id number] RECD: 09/03/24 18:24 STATUS: VAIBHAV REQ #: [id number] KIKE: 09/03/24 13:[address]: Antonio Chiang DEPT: Surgical Specimen RECD BY: Karly Ryan ENTERED: 09/03/24 18:26 SP TYPE: GB OTHR DR: Vivienne Barragan RN,Eleanor Savage,Ema Keller Tissues: 1 - GALLBLADDER Procedures: GROSS AND MICRO LEVEL 3 Comments: [id number]
--- NOTE | 2024-09-03 14:36 | PDOC.CMIN ---
Date of service: 09/03/24 Time of Service: 14:36 Care Management Initial Assmt Initial Assessment Reason for Hospitalization: Gwen came to the ED late last night with c/o several days of right upper quadrant pain. She developed nausea and vomiting, symptoms worsened and she presented to the ER. She was found to have cholelithiasis and acute cholecystitis. Functional Status/Living Situation Patient Presentation: Gwen had already been taken to the OR when CM went to meet with her early this morning. She had not yet returned by 14:45 when CM tried to meet with her again. Gwen's , Kevin, was present and was able to answer some questions. Kevin stated that he had heard that the surgery was taking a bit longer than expected, but he was told not to worry. Kevin and Gwen moved to the area 3 years ago from [place]. They were just ready for a change. They lived in [place], [place] for a bit, and now reside in [facility]. Neither Gwen nor Kevin currently have health insurance. Gwne should have medicare, as she is 63, but she never pursued it. CM discussed with Kevin that Gwen would qualify for Medicare, based on her age alone. A referral was placed with [place] on Aging with Kevin's permission. The patient financial assistance paperwork was also given to Kevin. CM called [facility] for further advice. Eugenie informed CM that Gwen should call [facility] within a week if she has not heard from them. If she needs further assistance once discharged, she should ask Eugenie for assistance. The rack cards for both [facility] and [facility] were given to Kevin by CM. 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 Please see note Financial Issues: denies Care Team Visit Care Team Role Provider Type None None Primary Care Provider MD [facility] STAFF PHYSICIAN Vivienne Reich Other Providers MEDICAL OFFICE REP Elenita Harrison Other Providers MEDICAL OFFICE REP Ema Torre Other Providers MEDICAL OFFICE REP Eleanor Mantilla RN Other Providers MEDICAL OFFICE REP Lani Savage Other Providers FRAME MAKER Juan Mosley MD Emergency Provider [facility] STAFF PHYSICIAN Antonio Chiang DO Admit Provider CONSULTING PHYSICIAN Attending Provider Discharge Potential Discharge Needs: PCP F/U Appt and Surgical F/U Appt (Pt will require surgical f/u as well as to establish with a PCP. T-doc Trell Herrera) Anticipated Barriers to Discharge: None Identified Patient/Family Education Needs: Review discharge instructions, discuss Ask Me Three Transportation: Private vehicle Plan: Anticipate that Gwen will be discharged home when medically stable. She will transport home with her . She will establish with her new PCP at an appoinment made for her prior to discharge, and f/u with the surgeon. She will f/u with the [place] on Aging to assure her medicare becomes active. CM will continue to follow. PFSH All Active Problems Acute cholecystitis (Acute) Social History Smoking/Tobacco Use Status: Never Smoking risk assessment performed?: Yes Details: denies Drug use: Never Substance use type: does not use Housing: house Readmission Within the Past 30 Days Yes or No: No SDOH(Care Management) Screening Will the Patient Participate in the Screening?: Yes Do you worry about having a steady place to live?: no Problems where you live: no known problems In the past 12 months, have you had to go without electric, gas, oil or water in your home?: no Have you or anyone in your house had to go without enough food to eat?: no Has lack of transportation kept you from medical appointments or from doing things needed for daily living?: no Has anyone in your support network made you feel unsafe for any reason?: no
--- NOTE | 2024-09-03 15:47 | W.BRIEF ---
Date of service: 09/03/24 Time of Service: 14:45 Brief Operative Note Procedure/Pre & Post Op Diagnoses/Financial Reporting Director: Operation Date: 09/03/24 12:25 Actual Procedures Cholecystectomy Laparoscopic(Not Applicable) - Antonio Chiang DO Pre-Op Diagnosis: Acute cholecystitis: Post-Op Diagnosis: Acute cholecystitis: Case Staff Physician Financial Reporting Director: Yolanda Hines Anesthesia Anesthesia Type: General LMA/ETT Estimated Blood Loss Output, Estimated Blood Loss 150 Amount Specimen/Culture Specimen(s): gall bladder and stones Complications Complications: None Additional Procedure Notes Note: SPONGE/INSTRUMENT COUNTS: Correct LINES/DRAINS: None CASE: clean/contaminated CONDITION: to PACU stable SEE FULL DICTATED REPORT Antonio Chiang D.O.
--- NOTE | 2024-09-03 15:53 | W.ANESPOSTOP ---
Postoperative Evaluation Date, Time and Location Date Performed: 09/03/24 Time Performed: 15:54 Patient Location: PACU Vital Signs Most Recent Imported Vital Signs: Most Recent Vital Signs Temp Pulse Resp BP Pulse Ox 36.7 C 74 15 150/68 H 94 09/03/24 15:42 09/03/24 07:33 09/03/24 07:33 09/03/24 07:33 09/03/24 07:33 Pain Score Most Recent Pain Score: Most Recent Pain Score Pain Level [Generalized] 5 09/03/24 08:00 Pain Level 0 09/03/24 15:42 Assessment Mental Status: Arousable with meaningful communication Airway and Respiratory Function: Patent airway with normal (patient baseline) respiratory exam Cardiovascular Function: Hemodynamically Stable Hydration Status: Adequately Hydrated Nausea & Vomiting: No Nausea or Vomiting Pain: Pain is tolerable per patient Peripheral Nerve Block: Patient did not receive a nerve block Teaching Patient Teaching: Discussed Safe Use of Pain Medication Given Recent Anesthesia
--- NOTE | 2024-09-03 16:01 | W.PM.OP ---
Date of service: 09/03/24 Time of Service: 14:45 Operative Note Operative Note DATE OF PROCEDURE: 09/03/24 PRE-OP DIAGNOSIS: Cholelithiasis with acute cholecystitis POST-OP DIAGNOSIS: same PROCEDURE: Laparoscopic cholecystectomy SURGEON: Antonio Chiang RETAIL BAKERY MANAGER: Yolanda Hines ANESTHESIA TYPE: General LMA/ETT Refer to Anesthesia Record ESTIMATED BLOOD LOSS: 150 PATHOLOGY: other (Gallbladder and stones) COMPLICATIONS: None Patient was transported to: PACU Patient's condition: stable Implants: None Indications: Severe RUQ abdominal pain, leukocytosis (16,000 WBC), nausea, vomiting Findings: Gallstones. Pronounced inflammatory changes of the gallbladder and pericholecystic soft tissues. Procedure Description: The patient was brought to the operating room at [facility] and placed supine on the table. Induction was performed and the patient was intubated and given general anesthetic by the anesthesia service. A sterile prep and drape were carried out in usual fashion to the abdomen. A #15 blade scalpel was used to make a small curvilinear infraumbilical incision and dissection was carried down through all layers to expose the anterior fascia. The anterior fascia was grasped with two [facility] clamps and lifted. The fascia was opened in the midline with a #15 blade scalpel. The peritoneum was grasped with a hemostat and opened bluntly. A 5/12 mm port was inserted using a direct open Cortes-type technique. Pneumoperitoneum was insufflated. Peritoneoscopy was performed. Visualized portions of the liver, stomach, large, and small bowel all appeared grossly normal. There was a large 9-10 cm pelvic cyst in the midline as seen on the CT scan, possibly associated with one of the ovaries. A photo was taken. Next, three 5 mm ports were inserted using a direct sharp trocar technique after elmer in the skin with a #15 blade scalpel. One was placed subxiphoid to the right of midline and the other two were placed in the far right upper outer quadrant. A needle aspirator was passed and used to partially decompress the gallbladder of dark crankcase looking bile. A grasper was passed and placed on the gallbladder fundus at this site and the gallbladder was lifted up over the liver. Pericholecystic adhesions were swept down using a hot [place] dissector and a blunt Endo Kitner. A loop of small bowel that was tethered to the gallbladder and the the right liver edge was mobilized with cautery and EndoShears. Further dissection was carried out to strip down adhesions. There were a lot of inflammatory changes and there was much generalized bloody oozing. Eventually a second grasper was passed and could be placed near Storey's. Slow deliberate dissection was carried out with the [place] dissector to tease out the cystic duct that could be seen just below Storey's. A window was created deep to this and a length of the cystic duct was developed. The critical angle was demonstrated and the cystic duct could be seen flaring out into the infundibular portion of the duct. Cystic duct was milked with the [place] dissector towards the gallbladder and then triply clipped with Endo aline and divided with EndoShears. Examination revealed a single lumen of the cystic duct with an associated small arterial lumen running along the duct. There was some backbleeding from the other side after the Endo Clip on the gallbladder slide was slipping off and was removed. The grasper on Storey's was reapplied. Dissection within the triangle of Calot was carried out and a small vein was cauterized and then subsequently controlled further with a single Endo Clip. Small posterior cystic artery branches were divided laterally as the peritoneal reflection was opened along the liver. Working lateral to medial a large anterior branch of the cystic artery was identified sweeping up onto the anteromedial wall of the gallbladder. This was doubly clipped with Endo aline and divided, with backbleeding noted from the gallbladder and a third clip applied to vessel on the gallbladder side. Cautery was used to remove the gallbladder from the subhepatic space. There was complete loss of the loose areolar tissue layer due to inflammation. [place] up the liver bed there was a dense attachment between the gallbladder and the liver. This was divided with hook cautery. Eventually, the last remaining attachments at the liver edge were divided. The camera was repositioned to the subxiphoid port. An Endo Catch bag was passed and the specimen was placed into the bag and retrieved from the patient. Palpably there were numerous gallstones, including at least two that were sizable and not readily evident on CT. The specimen was passed from the field. The umbilical port was reinserted and the pneumoperitoneum was reinsufflated. Endo Kitner's were passed laterally and used to lift the liver edge and to depress the subhepatic space. Copious irrigation was carried out with retrieval of several clots and some tiny stones that had escaped from a rent created in the gallbladder from one of the graspers. Examination of the field demonstrated excellent hemostasis after touching a few areas on the liver bed with cautery. Examination of the previously deployed clips showed they remained secure in place. I placed a single endoclip on the dense area that had been divided with cautery at the middle of the liver bed, despite there being no drainage, as I wished to avoid any backbleeding or any drainage if this had been a hepatocystic duct. Satisfied with the cholecystectomy I elected to conclude the procedure. I did not believe that a drain was necessary to be placed. All instruments were removed from the patient. The three 5 mm ports were removed under direct laparoscopic visualization with excellent hemostasis. The camera was removed and the pneumoperitoneum was evacuated. The umbilical port was removed. S-retractors were returned to the field. The edges of the anterior fascia at the level of the umbilicus were grasped with [facility]ner clamps and closed using three interrupted [id number] 0 Vicryl sutures. The fascia required a third stitch having been opened further in the midline to permit extraction of the edematous gallbladder and contents. All four wounds were splashed with 0.5% plain Marcaine. The skin of all four wounds was closed with subcuticular 4-0 Monocryl suture. Mastisol was applied as well as numerous Steri-Strips. A folded 4 x 4 and Tegaderm were applied to the umbilicus. The patient was awakened, extubated, and remanded to the recovery room in satisfactory condition having tolerated the procedure well and without incident
--- NOTE | 2024-09-03 16:52 | ROE_ITS ---
<Statement entered by Antonio Chiang DO - 09/05/24 08:38> See Brief Op Note See Full Dictated Report Date of service: 09/03/24 Time of Service: 14:45 Operative Note Operative Note DATE OF PROCEDURE: 09/03/24 POST-OP DIAGNOSIS: same PROCEDURE: None YARN WORKER: Yolanda Hines ANESTHESIA TYPE: General LMA/ETT Refer to Anesthesia Record ESTIMATED BLOOD LOSS: 150 PATHOLOGY: other (Gallbladder and stones) Patient was transported to: PACU Patient's condition: stable Implants: None
[2024-09-03] MEDS: Enoxaparin 40 MG/0.4 ML SYR SC (21:17)
[2024-09-04] MEDS: PIPERACILLIN/TAZO 3.375 GM in Normal Saline 50 ML IVPB ×3 (03:54→15:56)
[2024-09-04 06:58] LABS: HCT 38.1 % (36.0-46.0); HGB 12.5 g/dL (11.2-15.7); MCH 31.1 pg (27.0-33.0); MCHC 32.8 % (32.0-36.0); MCV 95 fL (80-95); MPV 11.7 fL (8.0-11.0); Platelet Count 165 10^3/uL (130-400); RBC 4.02 10^6/uL (3.93-5.22); RDW 13.6 % (11.7-14.6); RDW-SD 47.1 fL; WBC 15.76 10^3/uL (4.4-10.8)
[2024-09-04] MEDS: HYDROmorphone 2 MG/ML VIAL 1 MG IVP (07:02)
[2024-09-04 07:14] LABS: ALT 129 U/L (14-59); AST 80 U/L (15-37); Alkaline Phosphatase 92 U/L (46-116); BUN 21 mg/dL (7-18); Calcium 9.2 mg/dL (8.5-10.1); Chloride 106 mmol/L (98-107); Estimated GFR 62.52 (mL/min/1.73m2); Glucose 126 mg/dL (74-106); Potassium 4.1 mmol/L (3.5-5.1); Sodium 143 mmol/L (136-145); Total Protein 6.9 g/dL (6.4-8.2)
[2024-09-04 07:42] VITALS: BP 155/70; PULSE 72; RESP 15; TEMP 36.1; O2SAT 93
[2024-09-04] MEDS: Acetaminophen 325 MG TAB 650 MG PO ×2 (10:02→16:03)
[2024-09-04] MEDS: Normal Saline Flush 10 ML SYR IVP (10:02)
[2024-09-04] MEDS: oxyCODONE 5 mg/Acetaminophen 325 mg TAB 1 TAB PO ×2 (10:07→16:03)
--- NOTE | 2024-09-04 12:27 | W.PM.PROGNOT ---
Date of Service Date of service: 09/04/24 Time of Service: 11:15 Assessment and Plan Assessment and plan (1) Acute cholecystitis: Status: Acute Assessment and plan: (1) Overall, doing well post-op, POD#1, s/p Lap Antoinette for cholelithiasis with acute cholecystitis (2) Tolerated liquids. Will advance diet to Low-fat for lunch. (3) Continue IVF and Zosyn (4) Ambulate hallways (5) Use IS (6) Will re-assess this afternoon. Considering possible discharge to home on PO Augmentin. Antonio Chiang D.O. Exam Narrative Exam Narrative: Patient seen and examined on morning rounds. Had a good night, got some sleep. Eyes Other: Non-icteric, EOMI Neck Other: Supple GI Other: Soft, laparoscopic wounds and dressings are intact, clean and dry. BS are present. There is no guarding and no rebound. Extrem Other: There is no calf pain. Objective Last Vital Signs Temp 97.0 F L 09/04/24 07:42 Pulse 72 09/04/24 07:42 Resp 15 09/04/24 07:42 BP 155/70 H 09/04/24 07:42 Pulse Ox 93 09/04/24 07:42 Laboratory Results - last 24 hr 09/04/24 06:45 WBC 15.76 H RBC 4.02 Hgb 12.5 Hct 38.1 MCV 95 MCH 31.1 MCHC 32.8 RDW 13.6 Plt Count 165 MPV 11.7 H Sodium 143 Potassium 4.1 Chloride 106 Carbon Dioxide 28.0 Anion Gap 9.0 BUN 21 H Creatinine 1.0 Est GFR (CKD-EPI 2020) 62.52 Glucose 126 H Calcium 9.2 Total Bilirubin 0.80 AST 80 H ALT 129 H Alkaline Phosphatase 92 Total Protein 6.9 Albumin 3.0 L PAWSS Have you Been Recently Intoxicated or Drunk Within the Last 30 days?: No Have you Ever Experienced Previous Episodes of Alcohol Withdrawal?: No Have you ever Experienced Withdrawal Seizures?: No Have you ever Experienced Delirium Tremens(DT)s?: No Have you ever undergone Alcohol Rehabilitation Treatment (i.e, inpt ot outpatient treatment programs)?: No Have you ever Experienced Blackouts?: No Have you ever Combined Alcohol with other Downers within the last 90 days?: No Have you ever Combined Alcohol with any other Substance of Abuse during the last 90 days?: No Positive Blood Alcohol level on Presentation? [PCS.BAL]: No Evidence of Increased Autonomic Activity (i.e. HR>120, tremor, sweating, agitation, nausea)?: No Result: 0 Time Spent with Patient Time Spent with Patient: <25 minutes Time was spent: preparing to see the patient(eg.review tests), ordering medications,tests, procedures, indepentently interpreting results and counseling the patient
[2024-09-04 15:32] VITALS: BP 162/60; PULSE 65; RESP 16; TEMP 36.5; O2SAT 99
--- NOTE | 2024-09-04 16:46 | CMPROGNOTE_ITS ---
Date of service: 09/04/24 Time of Service: 12:10 Care Management Progress Note Progress Note Text Progress Note Text: Gwen was sitting up in the bed when CM met with her. She looked well, and stated that she was feeling so much better. She tolerated her clear liquid diet, and was being started on solid foods for lunch. If tolerated, the plan is for her to be discharged this evening. She is really hoping to go home, as she is worried about the cost of her stay. CM let Gwen know that a referral had been placed to [facility] for medicare enrollment, and also at [facility], who can help her with a medicaid application and the patient assistance packet (, Kevin, had given permission yesterday). CM also today gave them the # for patient assistance here at the hospital. CM made appointments for Gwen at the [facility] 10/09 at 0730 for a hospital f/u and 11/21 at 0800 for a new patient appointment/interview. Discharge Potential Discharge Needs: PCP F/U Appt and Surgical F/U Appt Anticipated Barriers to Discharge: None Identified Patient/Family Education Needs: Review discharge instructions, discuss Ask Me Three Transportation: Private vehicle Plan: Anticipate that Gwen will be discharged home when medically stable. She will transport home with her . She will establish with her new PCP at an appoinment made for her prior to discharge, and f/u with the surgeon. She will f/u with the [place] on [facility] to assure her medicare becomes active, and she will f/u with [facility]. CM will continue to follow. SDOH(Care Management) Screening Will the Patient Participate in the Screening?: Yes Do you worry about having a steady place to live?: no Problems where you live: no known problems In the past 12 months, have you had to go without electric, gas, oil or water in your home?: no Have you or anyone in your house had to go without enough food to eat?: no Has lack of transportation kept you from medical appointments or from doing things needed for daily living?: no Has anyone in your support network made you feel unsafe for any reason?: no
--- NOTE | 2024-09-04 16:47 | DSE_ITS ---
Date of service: 09/04/24 Time of Service: 16:47 DS: Diagnosis Discharge Diagnosis (1) Acute cholecystitis: Start date: 09/01/24 Status: Acute Asessment and Plan: Laparoscopic cholecystectomy Discharge Plan Disposition Patient Disposition: Home Condition: Good Discharge Details Reason For Visit: Cholelithiasis with acute cholecystitis Admit Date/Time: 09/02/24 21:51 Admit Provider: Antonio Chiang Attending Provider: Antonio Chiang Primary Care Provider: None,None Hospital Course Hospital Course: Patient admitted September 02 via ER at [facility] with acute cholecystitis. Leukocytosis with WBC of 16,200. Liver function studies normal. Given IVF, started on IVPB Zosyn, and kept NPO. Morning of second hospital day, patient taken to operating room and underwent Laparoscopic Cholecystectomy (by Dr. Chiang). Tolerated surgery well. Kept on IVF's and Zosyn post-op. On POD#1, patient was afebrile, tolerating advancement of her diet. Post-op pain controlled. Patient ambulating and voiding on own. Wished to be discharged to home. Home Meds and New Rx's Prescriptions: New oxycodone-acetaminophen 5-325 mg Tablet 1 tab PO Q3H PRN PRN3 Days Qty: 9 0RF amoxicillin-pot clavulanate [Augmentin] 500-125 mg tablet 1 tab PO Q12H Qty: 10 0RF Rx Instructions: Take one by mouth every 12 hours for 5 days. Complete all of this prescription. ibuprofen 600 mg tablet 600 mg PO Q8H MDD 3 pills PRN (Reason: pain) 4 Days Qty: 10 0RF No Action No Known Home Meds Discharge Instructions Instructions: Cholecystectomy, Laparoscopic Surgery, Low-fat diet Additional Instructions: (1) May go up and down steps without carrying anything. (2) No heavy lifting, pulling, pushing, stretching, or straining (3) Limit lifting to 15-20 lbs. (4) May shower, pat wounds dry, leave all steri-strips in place. Don't worry if any fall off. (5) No tub bathing, no swimming. (6) Take home incentive spirometer and use once per hour. (7) Get rest, otherwise, be up and about your home. (8) Avoid heavy, greasy, fatty fried foods for next 10-14 days. (9) Take a low-fat diet (10) Avoid carbonated beverages for next 7-10 days (11) Rx: Augmentin (500/125), Disp #10, take one by mouth every 12 hours x 5 days, finish all (12) Rx: Percocet (325/5), Disp #9, take one by mouth every 6 hours as needed for pain (13) Rx: Motrin 600mg, Disp #10, take one by mouth every 8 hours as needed for pain (14) Establish a Primary Care Physician (15) Follow-up with Dr. Cheryl Leonard/ [facility]END[facility] regarding pelvic cyst (16) Follow-up in the General Surgery office in about 10 days. Activity:: No heavy lifting Equipment/Supplies:: No Equipment Needed Diet:: Low-fat diet, no carbonated beverages Discharge Data Discharge Comment: Discharge to home when ready. DS: Summary Time Spent with Patient providing and/or coordinating discharge services: Greater than 30 minutes Status at Discharge Functional status at discharge: independent ambulation Overall status at discharge: patient is progressing back to baseline Mental Status: mental status grossly normal Speech and Movement: speech and movement normal Mood: congruent mood Affect: normal affect Quality:SDOH Health Related Social Needs: No Data to Display Referrals and interventions: Patient to follow-up with Dr. Cheryl Leonard/ [facility] regarding 9cm pelvic cyst Exam Narrative Exam Narrative: Comfortable, tolerating advancement of diet, ambulating, voiding on own, pain controlled Eyes Other: Non-icteric, EOMI Neck Other: Supple GI Other: Soft, all laparoscopic wounds and dressings are intact, clean, and dry. Bowel sounds are present. Neuro Other: No focal or lateralizing neuro deficits Extrem Other: There is no calf pain. Psych Mental Status: mental status grossly normal Speech and Movement: speech and movement normal Mood: congruent mood Affect: normal affect DS: Data Vitals/I&O Vitals and I&O: Vital Signs Temperature 97.7 F 09/04/24 15:32 Temperature Source Skin 09/04/24 15:32 Pulse 65 09/04/24 15:32 Pulse Rhythm Regular 09/03/24 00:24 Respiratory Rate 16 09/04/24 15:32 Respiratory Effort Normal 09/03/24 00:24 Blood Pressure 162/60 H 09/04/24 15:32 Blood Pressure Position Sitting 09/02/24 18:54 Pulse Oximetry 99 09/04/24 15:32 Oxygen Delivery Method Room Air 09/04/24 15:32 Oxygen Flow Rate 0 09/04/24 15:32 Pain Level 6 09/04/24 16:03 Comment RN notified 09/03/24 17:18 Intake & Output 09/03/24 09/04/24 09/04/24 23:59 11:59 23:59 Intake Total 1781.25 / 6.25 696 / 996 300 / 996 Output Total 150 / 150 Balance 1631. / 6.25 696 / 996 300 / 996 Intake: IV 1781. / 2185.25 446 / 496 50 / 496 Oral 250 / 500 250 / 500 Output: Estimated Blood Loss 150 / 150 Other: Emesis Description None Voiding Methods Toilet Data Completed and Pending Completed studies during hospitalization [Text1]: CT Scan of abdomen and pelvis 09/02/2024 Pending studies at discharge: None Labs on day of discharge: Labs from last 24 hours 09/04/24 06:45 WBC 15.76 H RBC 4.02 Hgb 12.5 Hct 38.1 MCV 95 MCH 31.1 MCHC 32.8 RDW 13.6 Plt Count 165 MPV 11.7 H Sodium 143 Potassium 4.1 Chloride 106 Carbon Dioxide 28.0 Anion Gap 9.0 BUN 21 H Creatinine 1.0 Est GFR (CKD-EPI 2020) 62.52 Glucose 126 H Calcium 9.2 Total Bilirubin 0.80 AST 80 H ALT 129 H Alkaline Phosphatase 92 Total Protein 6.9 [address]in [address] scan - abdomen: My impression: (1) Cholelithiasis (2) Acute cholecystitis (3) Pelvic cyst (9-9.5cm) Lab and Radiology Reports: Laboratory Results WBC 15.76 10^3/uL (4.4-10.8) H 09/04/24 06:45 RBC 4.02 10^6/uL (3.93-5.22) 09/04/24 06:45 Hgb 12.5 g/dL (11.2-15.7) 09/04/24 06:45 Hct 38.1 % (36.0-46.0) 09/04/24 06:45 MCV 95 fL (80-95) 09/04/24 06:45 MCH 31.1 pg (27.0-33.0) 09/04/24 06:45 MCHC 32.8 % (32.0-36.0) 09/04/24 06:45 RDW 13.6 % (11.7-14.6) 09/04/24 06:45 Plt Count 165 10^3/uL (130-400) 09/04/24 06:45 MPV 11.7 fL (8.0-11.0) H 09/04/24 06:45 Immature Gran % 0.4 % 09/03/24 07:04 Neutrophils % 88.2 % 09/03/24 07:04 Lymphocytes % 4.7 % 09/03/24 07:04 Monocytes % 6.4 % 09/03/24 07:04 Eosinophils % 0.1 % 09/03/24 07:04 Basophils % 0.2 % 09/03/24 07:04 Nucleated RBC % 0.0 % (0.0-0.3) 09/03/24 07:04 Absolute Neutrophils 14.14 10^3/uL (1.2-6.7) H 09/03/24 07:04 Absolute Lymphocytes 0.75 10^3/uL (1.2-3.4) L 09/03/24 07:04 Absolute Monocytes 1.03 10^3/uL (0.1-0.8) H 09/03/24 07:04 Absolute Eosinophils 0.02 10^3/uL (0.0-0.7) 09/03/24 07:04 Absolute Basophils 0.03 10^3/uL (0.0-0.2) 09/03/24 07:04 PT 10.8 sec (9.1-11.1) 09/02/24 19:30 INR 1.1 (0.9-1.1) 09/02/24 19:30 APTT 27.9 sec (23.6-32.8) 09/02/24 19:30 Sodium 143 mmol/L (136-145) 09/04/24 06:45 Potassium 4.1 mmol/L (3.5-5.1) 09/04/24 06:45 Chloride 106 mmol/L (98-107) 09/04/24 06:45 Carbon Dioxide 28.0 mmol/L (21.0-32.0) 09/04/24 06:45 Anion Gap 9.0 mmol/L (3-11) 09/04/24 06:45 BUN 21 mg/dL (7-18) H 09/04/24 06:45 Creatinine 1.0 mg/dL (0.55-1.02) 09/04/24 06:45 Est GFR (CKD-EPI 2020) 62.52 (mL/min/1.73m2) 09/04/24 06:45 Glucose 126 mg/dL (74-106) H 09/04/24 06:45 Calcium 9.2 mg/dL (8.5-10.1) 09/04/24 06:45 Total Bilirubin 0.80 mg/dL (0.2-1.0) 09/04/24 06:45 AST 80 U/L (15-37) H 09/04/24 06:45 ALT 129 U/L (14-59) H 09/04/24 06:45 Alkaline Phosphatase 92 U/L (46-116) 09/04/24 06:45 Troponin I Cancelled 09/02/24 20:29 NT-Pro-B Natriuret Pep 2521 pg/mL (<300) H 09/02/24 19:30 Total Protein 6.9 g/dL (6.4-8.2) 09/04/24 06:45 Albumin 3.0 g/dL (3.4-5.0) L 09/04/24 06:45 Lipase 15 U/L (16-77) L 09/02/24 19:30 Urine Color Dark Yellow (Yellow) 09/02/24 19:02 Urine Clarity Sl Cloudy (Clear) 09/02/24 19:02 Urine pH 5.5 (5-8) 09/02/24 19:02 Ur Specific [place] >= 1.030 (1.005-1.025) H 09/02/24 19:02 Urine Protein 100 mg/dL (Neg-Trace) H 09/02/24 19:02 Urine Ketones Trace mg/dL (Negative) H 09/02/24 19:02 Urine Blood Large (Negative) H 09/02/24 19:02 Urine Nitrite Negative (Negative) 09/02/24 19:02 Urine Bilirubin Small (Negative) H 09/02/24 19:02 Urine Urobilinogen 0.2 mg/dL (Up to 0.2) 09/02/24 19:02 Ur Leukocyte Esterase Negative (Negative) 09/02/24 19:02 Urine RBC 20-50 HPF (0-2) H 09/02/24 19:02 Urine WBC 0-2 HPF (0-5) 09/02/24 19:02 Ur Epithelial Cells Many HPF (Negative) 09/02/24 19:02 Urine Crystals Few Amorphous HPF (Negative) 09/02/24 19:02 Urine Bacteria Few HPF (Negative) 09/02/24 19:02 Urine Mucus Trace (Negative) 09/02/24 19:02 Ur Culture Indicated? No 09/02/24 19: Urine Glucose Negative mg/dL (Negative) 09/02/24 19:02 Additional Comments Additional comments: (1) Patient to establish Primary Care Physician (2) Patient to follow-up with Dr. Cheryl Leonard ([facility]) reguarding pelvic cyst; case discussed with Dr. Leonard [facility] All Active Problems Acute cholecystitis (Acute) Social History Smoking/Tobacco Use Status: Never Smoking risk assessment performed?: Yes Details: denies Drug use: Never Substance use type: does not use Housing: house Time Spent with Patient Time Spent with Patient: 45-69 minutes Time was spent: preparing to see the patient(eg.review tests), ordering medications,tests, procedures, referring, communicating with other health career coordinator, counseling the patient and care coordination
== END 2024-09-04 17:54 | disposition home or self-care (01) ==
LOC: ER 23:38 → MS 09-03 00:13
PROVIDERS: Admitting Provider Surgery; Emergency Provider Emergency Medicine; Visit Provider Surgery
PROC: 0FT44ZZ Resection of Gallbladder, Percutaneous Endoscopic Approach (ICD-10-PCS; CPT 47562; principal; 2024-09-03 12:15)
DX: K80.12 Calculus of gallbladder with acute and chronic cholecystitis without obstruction (principal); Z79.01 Long term (current) use of anticoagulants; Z85.3 Personal history of malignant neoplasm of breast; D72.829 Elevated white blood cell count, unspecified; E86.0 Dehydration
CPT/HCPCS: 47562; 00123; 36415; 71275; 74177; 80053; 83690; 85027; 96365; 96366; 96367; 96372; 96375; 96376; 99285; J1650; 81003; 81015; 83880; 84484; 85025; 85610; 85730; 88304; G0378; J0131; J0360; J1100; J1171; J2250; J2371; J2405; J2543; J2704; J3010; J3475; J3490

== ENCOUNTER 2025-01-07 02:23 | Outpatient (CLI) | payer MEDICARE, SELFPAY ==
[2025-01-07 10:57] LABS: Anion Gap 7.1 mmol/L (3-11); BUN 18 mg/dL (7-18); CO2 27.9 mmol/L (21.0-32.0); CREATININE 1.2 mg/dL (0.55-1.02); Calcium 9.4 mg/dL (8.5-10.1); Chloride 107 mmol/L (98-107); Estimated GFR 49.92 (mL/min/1.73m2); Glucose 155 mg/dL (74-106); Potassium 3.8 mmol/L (3.5-5.1); Sodium 142 mmol/L (136-145)
== END 2025-01-07 02:24 | disposition home or self-care (01) ==
PROVIDERS: PCP Student in an Organized Health Care Education/Training Program; Visit Provider Student in an Organized Health Care Education/Training Program
DX: I10 Essential (primary) hypertension (principal)
CPT/HCPCS: 36415; 80048

== ENCOUNTER 2025-11-03 16:19 | Outpatient (CLI) | payer MEDICARE, SELFPAY ==
[2025-11-03 16:44] LABS: Anion Gap 8.2 mmol/L (3-11); BUN 16 mg/dL (9-23); CO2 30.8 mmol/L (20.0-31.0); Calcium 9.6 mg/dL (8.3-10.6); Chloride 102 mmol/L (98-107); Glucose 97 mg/dL (74-106); Potassium 4.2 mmol/L (3.5-5.1); Sodium 141 mmol/L (136-145)
[2025-11-03 16:59] LABS: Microalb ug/mg Crea 3.4 ug/mg Cr
== END 2025-11-03 16:20 | disposition home or self-care (01) ==
LOC: LBO 16:20
PROVIDERS: PCP Student in an Organized Health Care Education/Training Program; Visit Provider Student in an Organized Health Care Education/Training Program
DX: I10 Essential (primary) hypertension (principal)
CPT/HCPCS: 36415; 80048; 82043; 82570